=== PATIENT | male | born 1955 | race Caucasian/White ===

== ENCOUNTER → 2022-07-14 10:21 | Outpatient (CLI) | payer MEDICARE, OTHER, SELFPAY ==
--- NOTE | ~2022-07-14 | MR_ITS ---
EXAMINATION: MR shoulder RT wo con DATE: 07/14/2022 11:25 INDICATION: Chronic anterior right shoulder pain. TECHNIQUE: Magnetic resonance imaging (MRI) of the right shoulder was performed without intravenous c ontrast. Sequences included axial PD-weighted FS FSE, coronal oblique PD-weighted FS FSE and T2-weigh sandra FS FSE, and sagittal oblique T2-weighted FS FSE and T1-weighted FSE. COMPARISON: Right shoulder radiographs 05/02/2022 FINDINGS: Coracoacromial arch: The acromion undersurface is curved in morphology with anterior hook (type III). There is severe acro mioclavicular joint osteoarthritis including inferiorly directed osteophytes. There is moderate subac romial/subdeltoid bursitis. Rotator cuff: There is a full-thickness tear of supraspinatus and anterior infraspinatus tendons measuring 21 mm an terior to posterior by 33 mm proximal to distal. There is moderate infraspinatus tendinopathy. Teres minor tendon is normal. There is a complete tear of subscapularis tendon. There is mild fatty atrophy of supraspinatus, infraspinatus, and subscapularis muscle bellies. Biceps tendon and glenoid labrum: There is a complete tear of proximal biceps tendon. There is scarred tendon in bicipital groove. Ther e is widespread tearing of the glenoid labrum. Fluid: There is a large glenohumeral joint effusion. Bones/cartilage: There is partial-thickness cartilage loss of glenoid and humeral head, deep at anterior humeral head. Osteophytes are noted. IMPRESSION: 1. Full-thickness rotator cuff tears. 2. Moderate glenohumeral joint chondrosis. 3. Severe acromioclavicular joint osteoarthritis. 4. Complete tear of proximal biceps tendon. 5. Large glenohumeral joint effusion and moderate subacromial/subdeltoid bursitis. Reviewed, dictated and finalized at [facility]. IMPRESSION: 1. Full-thickness rotator cuff tears. 2. Moderate glenohumeral joint chondrosis. 3. Severe acromioclavicular joint osteoarthritis. 4. Complete tear of proximal biceps tendon. 5. Large glenohumeral joint effusion and moderate subacromial/subdeltoid bursit is.
== END ==
PROVIDERS: PCP Internal Medicine; Visit Provider Orthopaedic Surgery
DX: M67.911 Unspecified disorder of synovium and tendon, right shoulder (principal); M19.011 Primary osteoarthritis, right shoulder; S46.211A Strain of muscle, fascia and tendon of other parts of biceps, right arm, initial encounter; X58.XXXA Exposure to other specified factors, initial encounter; M75.101 Unspecified rotator cuff tear or rupture of right shoulder, not specified as traumatic; M75.51 Bursitis of right shoulder
CPT/HCPCS: 73221

== ENCOUNTER 2024-04-15 09:34 | Day surgery (SDC) | payer MEDICARE, OTHER, SELFPAY ==
[2024-03-31 10:55] VITALS: BMI 29.1
[2024-04-03 15:01] VITALS: BMI 29.0
--- NOTE | 2024-04-15 07:34 | P.PNAN_ITS ---
Anes - Initial Pre Proc Eval Procedure: Operation Date: 04/15/24 12:00 Proposed Procedures p Diagnostic Colonoscopy - Ruslan Jaffe MD Date/Time: 04/15/24 07:34 Surgeon: Ruslan Jaffe MD Pre Op Diagnosis: Hemorrhage of anus and rectum Patient Data Age: 68 Gender: M Height: 1.85 m Weight: 100 kg Allergies Allergy/AdvReac Type Severity Reaction Status Date / Time No Known Allergies Allergy Verified 04/15/24 11:01 Home Medications Medication Instructions Recorded Confirmed Type atorvastatin 10 mg tablet 10 mg PO DAILY 05/10/20 04/15/24 History ropinirole 1 mg tablet 1 mg PO DAILY 05/10/20 04/15/24 History ibuprofen 200 mg capsule 200 mg PO Q6H PRN Pain 07/07/20 04/15/24 History magnesium oxide 400 mg PO BID 03/25/24 04/15/24 History aspirin 81 mg tablet 81 mg PO DAILY 04/03/24 04/15/24 History Patient hx anesthesia problems: none Family hx anesthesia problems: none Results Review: All pre-operative results and documents have been reviewed as part of the pre- operative evaluation. [facility] Past Medical History Medical History BMI 26.0-26.9,adult Bright red blood per rectum Constipation Degenerative arthritis of knee, bilateral Hyperlipidemia Right shoulder pain Surgical History Surgical History History of appendectomy History of cardiac radiofrequency ablation Family History Family History Mother Hypertension Diabetes mellitus Heart disease Father Cancer Social History Social History Smoking status: Never smoker Alcohol intake: never Substance use type: does not use Living arrangements: with family Occupation/Education: occupation Additional occupation/education comments: [employer] Gender identity (if verbalized by the patient): Male Spiritual care concerns: No Anes - Eval Final PreProcedure Day of Procedure 04/15/24 07:34 Patient weight: overweight Heart: regular rate and rhythm Lungs: clear to auscultation Airway: Mallampati scale class 1 Neurological: alert and oriented Last oral intake: >/= 8 hours ASA classification: II Emergent: no Anesthetic plan: proceed Anesthesia type and monitoring: general GIVS and standard monitoring Results Review: All pre-operative results and documents have been reviewed as part of the pre- operative evaluation. Informed Consent: The patient's anesthetic plan and its attendant risks and benefits were discussed with the patient/family/POA. Questions were solicited and answers provided to the satisfaction of the patient/family/POA.
[2024-04-15 11:13] VITALS: BMI 27.6
[2024-04-15 11:14] VITALS: BP 141/79; PULSE 57; RESP 18; TEMP 37.3; O2SAT 97
[2024-04-15] MEDS: LACTATED RINGERS 1,000 ML 150 ML IV CONT (11:17)
--- NOTE | 2024-04-15 11:28 | P.PNAN_ITS ---
Anes - Initial Pre Proc Eval Procedure: Operation Date: 04/15/24 12:00 Proposed Procedures p Diagnostic Colonoscopy - Ruslan Jaffe MD Date/Time: 04/15/24 11:28 Surgeon: Ruslan Jaffe MD Pre Op Diagnosis: Hemorrhage of anus and rectum Patient Data Age: 68 Gender: M Height: 1.85 m Weight: 94.9 kg Last Vital Signs Temp 37.3 C 04/15/24 11:14 Pulse 57 L 04/15/24 11:14 Resp 18 04/15/24 11:14 BP 141/79 H 04/15/24 11:14 Pulse Ox 97 04/15/24 11:14 O2 Del Method Room Air 04/15/24 11:14 Allergies Allergy/AdvReac Type Severity Reaction Status Date / Time No Known Allergies Allergy Verified 04/15/24 11:01 Home Medications Medication Instructions Recorded Confirmed Type atorvastatin 10 mg tablet 10 mg PO DAILY 05/10/20 04/15/24 History ropinirole 1 mg tablet 1 mg PO DAILY 05/10/20 04/15/24 History ibuprofen 200 mg capsule 200 mg PO Q6H PRN Pain 07/07/20 04/15/24 History magnesium oxide 400 mg PO BID 03/25/24 04/15/24 History aspirin 81 mg tablet 81 mg PO DAILY 04/03/24 04/15/24 History Patient hx anesthesia problems: none Family hx anesthesia problems: none Results Review: All pre-operative results and documents have been reviewed as part of the pre- operative evaluation. [facility] Past Medical History Medical History BMI 26.0-26.9,adult Bright red blood per rectum Constipation Degenerative arthritis of knee, bilateral Hyperlipidemia Right shoulder pain Surgical History Surgical History History of appendectomy History of cardiac radiofrequency ablation Family History Family History Mother Hypertension Diabetes mellitus Heart disease Father Cancer Social History Social History Smoking status: Never smoker Alcohol intake: never Substance use type: does not use Living arrangements: with family Occupation/Education: occupation Additional occupation/education comments: [employer] Gender identity (if verbalized by the patient): Male Spiritual care concerns: No Anes - Eval Final PreProcedure Day of Procedure 04/15/24 11:28 Patient weight: overweight Heart: regular rate and rhythm Lungs: clear to auscultation Airway: Mallampati scale class 1 Neurological: alert and oriented Last oral intake: >/= 8 hours ASA classification: II Emergent: no Anesthetic plan: proceed Anesthesia type and monitoring: general Results Review: All pre-operative results and documents have been reviewed as part of the pre- operative evaluation. Informed Consent: The patient's anesthetic plan and its attendant risks and benefits were discussed with the patient/family/POA. Questions were solicited and answers provided to the satisfaction of the patient/family/POA.
--- NOTE | 2024-04-15 11:37 | WPDHPUPDATE1 ---
History and Physical Update Update Date/Time: 04/15/24 11:37 History and Physical has been reviewed, including an updated exam of the patient. There are NO changes in the patient's condition. Risks, benefits, and alternatives have been discussed and questions answered. Patient agrees to proceed with procedure.
[2024-04-15 12:51] VITALS: BP 115/68; PULSE 65; RESP 15; O2SAT 95
[2024-04-15 13:01] VITALS: BP 121/72; PULSE 57; RESP 16; O2SAT 97
[2024-04-15 13:11] VITALS: BP 125/72; PULSE 49; RESP 16; O2SAT 100
--- NOTE | 2024-04-15 14:15 | WPDANESPN ---
Anes - Prog Note Post-Op Date/Time: 04/15/24 14:15 Cardiovascular status: normal Respiratory status: normal Airway patency: baseline Mental status: baseline Post-Op hydration status: normal Vital Signs: Last Vital Signs Temp 37.3 C 04/15/24 11:14 Pulse 49 L 04/15/24 13:11 Resp 16 04/15/24 13:11 BP 125/72 04/15/24 13:11 Pulse Ox 100 04/15/24 13:11 O2 Del Method Room Air 04/15/24 13:11 Pain Score (VAS): 0 I/O: Intake & Output 04/14/24 04/15/24 04/15/24 23:59 07:59 15:59 Intake Total 300 Balance 300 Post-procedural complaints: none Patient Feedback: Patient satisfied with anesthetic care. Other Findings: Patient vital signs back to baseline. Patient denies nausea and vomiting. Patient's pain under control. Patient OK for discharge.
== END 2024-04-15 09:35 | disposition home or self-care (01) ==
PROVIDERS: PCP Internal Medicine; Visit Provider Internal Medicine Gastroenterology
PROC: 0DJD8ZZ Inspection of Lower Intestinal Tract, Via Natural or Artificial Opening Endoscopic (ICD-10-PCS; CPT 45378; principal; 2024-04-15 12:00)
DX: K62.5 Hemorrhage of anus and rectum (principal); K64.8 Other hemorrhoids
CPT/HCPCS: 45378

== ENCOUNTER 2024-07-28 07:01 | Outpatient (CLI) | payer MEDICARE, OTHER, SELFPAY ==
--- NOTE | ~2024-07-28 | MR_ITS ---
MRI of the lumbar spine Clinical History: Radiculopathy Technique: Axial T2-weighted images, and sagittal T1-weighted, T2-weighted, and and T2 fat-sat images were acquired. Findings: There is no fracture or subluxation of the lumbar spine. Vertebral bodies maintain normal h eight and alignment. No suspicious bone marrow signal abnormality seen. At L1-L2, there is minimal disc bulge with severe facet arthropathy. No aubrie central canal stenosis. There is moderate to advanced right neural foraminal narrowing. Left neural foramen preserved. At L2-L3, there is diffuse disc bulge and severe facet arthropathy, with moderate to severe spinal ca nal stenosis/thecal sac compression. There is moderate to advanced right neural foraminal narrowing. There is minimal left neural foraminal narrowing. L3-L4, there is diffuse disc bulge with severe facet arthropathy, resulting in moderate spinal canal stenosis/thecal sac compression. There is moderate to severe left neural foraminal narrowing, and sev ere right neural foraminal narrowing. At L4-L5, there is diffuse disc bulge and severe facet arthropathy, resulting in severe spinal canal stenosis/thecal sac compression. There is severe bilateral neural foraminal compromise. At L5-S1, there is mild disc bulge with severe facet arthropathy. No central canal stenosis. There is moderate to advanced bilateral neural foraminal narrowing, left worse than right. Paravertebral soft tissues are unremarkable. Impression: Severe degenerative spondylosis, worst at L2-L3, L3-L4, L4-L5, as detailed above. Reviewed, dictated and finalized at [facility]. Impression: Severe degenerative spondylosis, worst at L2-L3, L3-L4, L4-L5, as detailed sd hernandez
== END 2024-07-28 07:02 | disposition home or self-care (01) ==
LOC: MICIMG 07:02
PROVIDERS: PCP Internal Medicine; Visit Provider Nurse Practitioner Family
DX: M47.26 Other spondylosis with radiculopathy, lumbar region (principal)
CPT/HCPCS: 72148